=== PATIENT | male | born 1990 | race African-American/Black ===

== ENCOUNTER 2017-02-18 12:13 | Inpatient (IN) | payer MEDICARE, MEDICAID ==
[~2017-02-18] VITALS: Ht 188 cm; Wt 88.9 kg
[~2017-02-18 12:13] MED LIST: BENZ1TAB10 PO; DIPH25CA85 PO; FERR-89 PO
[2017-02-18] MEDS ORDERED: OLAN2.5T3 PO (12:32)
[2017-02-18] MEDS ORDERED: TRAZ-144 PO (12:32)
[2017-02-18 13:02] LABS: BASOPHILS # (AUTO) 0.09 K/uL (0.00-0.20); BASOPHILS % (AUTO) 1.5 % (0.0-2.0); EOSINOPHILS # (AUTO) 0.05 K/uL (0.00-0.70); EOSINOPHILS % (AUTO) 0.85 % (1.0-6.0); HEMATOCRIT 41.6 % (41-53); HEMOGLOBIN 13.4 g/dL (13.5-17.5); LYMPHOCYTES # (AUTO) 2.7 K/uL (1.0-4.8); LYMPHOCYTES % (AUTO) 44.8 % (22.0-44.0); MEAN CORPUSCULAR HEMOGLOBIN 26.5 pg (26.0-34.0); MEAN CORPUSCULAR HGB CONC 32.3 G/dL (31.0-37.0); MEAN CORPUSCULAR VOLUME 82 fL (80-100); MONOCYTES # (AUTO) 0.6 K/uL (0.1-1.0); MONOCYTES % (AUTO) 10.6 % (2.0-9.0); NEUTROPHILS # (AUTO) 2.5 K/uL (1.8-7.7); NEUTROPHILS % (AUTO) 42.2 % (40.0-70.0); PLATELET COUNT (AUTO) 272 K/uL (150-450); RED BLOOD CELL COUNT(AUTO) 5.07 MIL/uL (4.50-5.90); RED CELL DISTRIBUTION WIDTH 15.4 % (11.5-14.5)
[2017-02-18 13:08] LABS: GLUCOSE,POINT OF CARE 102 MG/DL (70-110)
[2017-02-18 13:12] LABS: ANION GAP 6 mmol/L (8-16); CALCIUM, TOTAL 8.8 mg/dL (8.8-10.5); CARBON DIOXIDE 28 mmol/L (22-29); CHLORIDE 107 mmol/L (98-107); CREATININE 1.12 mg/dL (0.60-1.30); GLOMERULAR FILTR. RATE CALC > 60 mL/min (>60); POTASSIUM 3.6 mmol/L (3.5-5.1); SODIUM SERUM 141 mmol/L (136-145); UREA NITROGEN, BLOOD 11 mg/dL (7-18)
[2017-02-18 13:16] LABS: ALANINE AMINOTRANSFERASE 33 U/L (12-78); ALBUMIN 3.8 g/dL (3.4-5.0); ASPARTATE AMINOTRANSFERASE 38 U/L (15-37); BILIRUBIN,TOTAL 0.5 mg/dL (0.1-1.0); TOTAL PROTEIN, SERUM 7.6 g/dL (6.4-8.2)
[2017-02-18] MEDS ORDERED: ZOLPIDEM TARTRATE 10 MG TABLET PO PRN (13:30)
[2017-02-18] MEDS ORDERED: HALOPERIDOL 5 MG TABLET PO PRN (13:30)
[2017-02-18] MEDS ORDERED: LORazepam 2 MG TABLET PO PRN (13:30)
[2017-02-18] MEDS ORDERED: DEXTROSE 50%-WATER 25 GM/50 ML SYRINGE IVP PRN (17:45)
[2017-02-18] MEDS: OLANZapine 5 MG TABLET PO SCH (21:07)
[2017-02-18] MEDS ORDERED: ACETAMINOPHEN 325 MG TABLET PO PRN (21:15)
[2017-02-18 21:17] VITALS: BP 130/79
[2017-02-19 02:45] VITALS: BP 135/80
[2017-02-19] MEDS: IBUPROFEN 400 MG TABLET PO PRN (02:45)
[2017-02-19 06:53] LABS: THYROID STIMULATING HORMONE 0.3 uIU/mL (0.36-3.74)
[2017-02-19 07:00] LABS: HEMOGLOBIN A1C 5.3 % (4.5-6.2)
[2017-02-19] MEDS: OLANZapine 5 MG TABLET PO SCH ×2 (07:58→21:05)
[2017-02-19 08:00] VITALS: BP 106/78
[2017-02-19 08:58] VITALS: BP 106/78
[2017-02-19 16:45] VITALS: BP 110/64
[2017-02-19] MEDS ORDERED: ALBUTEROL SULFATE HFA 90 MCG/PUFF 8 GM INHALER IH PRN (18:15)
[2017-02-19] MEDS: FERROUS SULFATE 325 MG EC TABLET PO SCH (21:04)
[2017-02-20] MEDS: FERROUS SULFATE 325 MG EC TABLET PO SCH ×4 (06:57→21:35)
[2017-02-20] MEDS: OLANZapine 5 MG TABLET PO SCH ×2 (08:50→21:35)
[2017-02-20 08:54] VITALS: BP 111/64
[2017-02-20] MEDS: IBUPROFEN 400 MG TABLET PO PRN (08:54)
[2017-02-20] MEDS: INSULIN ASPART 100 UNITS/ML SQ PRN (11:54)
[2017-02-20 11:57] LABS: GLUCOSE,POINT OF CARE 92 MG/DL (70-110)
[2017-02-20 16:57] VITALS: BP 120/68
[2017-02-21 05:48] LABS: GLUCOSE COMMENT 1 Received Meds; GLUCOSE,POINT OF CARE 89 MG/DL (70-110)
[2017-02-21] MEDS: INSULIN ASPART 100 UNITS/ML SQ PRN ×2 (06:44→11:59)
[2017-02-21] MEDS: FERROUS SULFATE 325 MG EC TABLET PO SCH ×4 (07:02→21:47)
[2017-02-21] MEDS: OLANZapine 5 MG TABLET PO SCH ×2 (08:58→21:47)
[2017-02-21 09:01] VITALS: BP 148/85
[2017-02-21 11:38] LABS: GLUCOSE,POINT OF CARE 92 MG/DL (70-110)
[2017-02-21 16:00] VITALS: BP 136/91
[2017-02-21 18:27] LABS: GLUCOSE COMMENT 1 FASTING; GLUCOSE,POINT OF CARE 120 MG/DL (70-110)
[2017-02-22 06:42] LABS: GLUCOSE COMMENT 1 Received Meds; GLUCOSE,POINT OF CARE 91 MG/DL (70-110)
[2017-02-22] MEDS: FERROUS SULFATE 325 MG EC TABLET PO SCH ×2 (07:03→11:28)
[2017-02-22] MEDS: OLANZapine 5 MG TABLET PO SCH (08:11)
[2017-02-22 08:17] VITALS: BP 123/75
== END 2017-02-22 14:00 | disposition home or self-care (01) | DRG 885 ==
LOC: EMS 12:15 → AHU 14:26 → 3EC 17:06
DX: F20.0 Paranoid schizophrenia (principal); E11.9 Type 2 diabetes mellitus without complications; D64.9 Anemia, unspecified; F10.10 Alcohol abuse, uncomplicated; I10 Essential (primary) hypertension; J44.9 Chronic obstructive pulmonary disease, unspecified; R74.0 Nonspecific elevation of levels of transaminase and lactic acid dehydrogenase [LDH]; Z59.0 Homelessness; Z87.891 Personal history of nicotine dependence; Z91.5 Personal history of self-harm
CPT/HCPCS: 82962; 83036; 84443; 99285; G0480